=== PATIENT | male | born 1950 | race Caucasian/White ===

== ENCOUNTER 2021-02-26 14:56 | Inpatient (IN) | payer MEDICARE ==
[~2021-02-26] VITALS: Ht 182.9 cm; Wt 99.8 kg
[2021-02-26] MEDS ORDERED: acetaminophen 325mg tablet PO PRN ×2 (17:25)
[2021-02-26] MEDS ORDERED: dextrose 50%-water 50ml dispensing syringe IV PRN ×2 (17:25)
[2021-02-26] MEDS ORDERED: MESSAGE TO PHARMACY PO ONE (17:25)
[2021-02-26] MEDS ORDERED: morphine 2 MG/ML inj. syringe IV PRN ×2 (17:25)
[2021-02-26] MEDS ORDERED: magnesium hydroxide 30ml (MOM) UD suspension PO PRN (17:25)
[2021-02-26] MEDS ORDERED: normal saline 1000ml 1,000 ML IV SCH (17:25)
[2021-02-26] MEDS ORDERED: mag hydrox/Alum hydrox/simeth 30ml oral suspension PO PRN (17:25)
[2021-02-26] MEDS ORDERED: HYDROcodone/acetaminophen 5mg/325mg tablet PO PRN (17:25)
[2021-02-26] MEDS ORDERED: dextrose ORAL solution 15 GM/59 ML bottle PO PRN ×2 (17:25)
[2021-02-26] MEDS ORDERED: glucagon, human recombinant 1mg kit SUBCUT PRN (17:25)
[2021-02-26] MEDS ORDERED: ATOR20TA66 PO (17:45)
[2021-02-26] MEDS ORDERED: EMPA25TA PO (17:45)
[2021-02-26] MEDS ORDERED: GLIP10TA11 PO (17:45)
[2021-02-26] MEDS ORDERED: OMEP-50 PO (17:45)
[2021-02-26] MEDS ORDERED: METF-950 PO (17:45)
[2021-02-26] MEDS ORDERED: LISI1TAB51 PO (17:45)
[2021-02-26 18:20] VITALS: BP 127/62
[2021-02-26 18:39] LABS: BASOPHILS # (AUTO) 0.1 X10'3 (0-0.2); BASOPHILS % (AUTO) 0.7 % (0-1); EOSINOPHILS # (AUTO) 0.3 X10'3 (0-0.9); EOSINOPHILS % (AUTO) 2.9 % (0-6); HEMATOCRIT 36.9 % (42.0-52.0); HEMOGLOBIN 11.8 g/dl (14.0-17.9); LYMPHOCYTES # (AUTO) 2.1 X10'3 (1.1-4.8); LYMPHOCYTES % (AUTO) 19.5 % (21-51); MEAN CORPUSCULAR HEMOGLOBIN 31.1 PG (27.0-31.0); MEAN CORPUSCULAR HGB CONC 31.9 g/dL (33.0-36.5); MEAN CORPUSCULAR VOLUME 97.5 FL (78-98); MEAN PLATELET VOLUME 8.6 FL (7.4-10.4); MONOCYTES # (AUTO) 1.2 X10'3 (0-0.9); NEUTROPHILS % (AUTO) 65.9 % (42-75); PLATELET COUNT 344 X10'3 (140-440); RED BLOOD COUNT 3.79 X10'6 (4.70-6.10); RED CELL DISTRIBUTION WIDTH 13.6 % (11.5-14.5); WHITE BLOOD COUNT 10.6 X10'3 (4.5-11.0)
--- NOTE | 2021-02-26 18:44 | NUR ---
Problems reprioritized. Patient report given, questions answered & plan of care reviewed with NICOLE CARTER.
[2021-02-26 18:59] LABS: ALANINE AMINOTRANSFERASE 18 U/L (12-78); ALBUMIN 3.2 G/DL (3.4-5.0); ALBUMIN/GLOBULIN RATIO 0.7 (1.1-1.5); ALKALINE PHOSPHATASE 90 IU/L (46-116); ANION GAP 18 (8-16); ASPARTATE AMINO TRANSFERASE 10 U/L (10-37); BILIRUBIN,TOTAL 0.3 MG/DL (0.1-1.0); BLOOD UREA NITROGEN 79 MG/DL (7-18); BUN/CREATININE RATIO 13.6 (5.4-32.0); CALCIUM 8.7 MG/DL (8.5-10.1); CHLORIDE 111 MMOL/L (99-107); CREATININE 5.82 MG/DL (0.60-1.10); GLUCOSE 140 MG/DL (70-104); PHOSPHORUS 5.8 MG/DL (2.3-4.5); POTASSIUM 5.4 MMOL/L (3.5-5.1); SODIUM 140 MMOL/L (135-145); TOTAL PROTEIN 7.5 G/DL (6.4-8.2); eGFR 10 ML/MIN
[2021-02-26 19:18] LABS: TOTAL CARBON DIOXIDE 10.9 MMOL/L (24-32)
--- NOTE | 2021-02-26 19:26 | NUR ---
PAGER ID: [phone] MESSAGE: MiryamRosales 70 year old male [id number] DX: Acute renal failure Hx: DM, HTN Critical lab : CO2 of 10.9 Carmela [id number]
[2021-02-26 20:08] LABS: BASOPHILS % (AUTO) 0.4 % (0-1); EOSINOPHILS # (AUTO) 0.3 X10'3 (0-0.9); EOSINOPHILS % (AUTO) 2.6 % (0-6); HEMATOCRIT 38.3 % (42.0-52.0); HEMOGLOBIN 12.1 g/dl (14.0-17.9); LYMPHOCYTES # (AUTO) 2.1 X10'3 (1.1-4.8); LYMPHOCYTES % (AUTO) 19.4 % (21-51); MEAN CORPUSCULAR HEMOGLOBIN 30.8 PG (27.0-31.0); MEAN CORPUSCULAR HGB CONC 31.6 g/dL (33.0-36.5); MEAN CORPUSCULAR VOLUME 97.4 FL (78-98); MEAN PLATELET VOLUME 8.5 FL (7.4-10.4); MONOCYTES # (AUTO) 1.3 X10'3 (0-0.9); MONOCYTES % (AUTO) 11.4 % (2-12); NEUTROPHILS # (AUTO) 7.3 X10'3 (1.8-7.7); NEUTROPHILS % (AUTO) 66.2 % (42-75); PLATELET COUNT 375 X10'3 (140-440); RED BLOOD COUNT 3.94 X10'6 (4.70-6.10); WHITE BLOOD COUNT 11.1 X10'3 (4.5-11.0)
[2021-02-26 20:16] LABS: ALANINE AMINOTRANSFERASE 21 U/L (12-78); ALBUMIN 3.3 G/DL (3.4-5.0); ALBUMIN/GLOBULIN RATIO 0.7 (1.1-1.5); ALKALINE PHOSPHATASE 94 IU/L (46-116); ANION GAP 19 (8-16); ASPARTATE AMINO TRANSFERASE 10 U/L (10-37); BILIRUBIN,TOTAL 0.3 MG/DL (0.1-1.0); BLOOD UREA NITROGEN 74 MG/DL (7-18); BUN/CREATININE RATIO 13.3 (5.4-32.0); CALCIUM 8.7 MG/DL (8.5-10.1); CHLORIDE 110 MMOL/L (99-107); CREATININE 5.58 MG/DL (0.60-1.10); GLUCOSE 137 MG/DL (70-104); POTASSIUM 5.1 MMOL/L (3.5-5.1); SODIUM 140 MMOL/L (135-145); TOTAL PROTEIN 7.9 G/DL (6.4-8.2); eGFR 10 ML/MIN
[2021-02-26] MEDS: normal saline 1000ml 1,000 ML IV SCH (20:20)
[2021-02-26 20:21] LABS: TOTAL CARBON DIOXIDE 11.4 MMOL/L (24-32)
--- NOTE | 2021-02-26 20:38 | NUR ---
PAGER ID: [phone] MESSAGE: Rosales Witt 70 year old Rm : [id number] Dx: Acute Renal Failure Hx: Diabetes, HTN Critical value of CO2 @ 11.4 (2nd draw at 19:50) Carmela [id number]
[2021-02-26] MEDS: insulin glargine (Lantus) pen - multi-dose SQ SCH (21:00)
[2021-02-26] MEDS: heparin, porcine 5000 units/ml vial SQ SCH (21:20)
[2021-02-26] MEDS: docusate sod 100mg capsule PO SCH (21:31)
[2021-02-26 22:00] VITALS: BP 139/66
--- NOTE | 2021-02-26 22:42 | NUR ---
Received notification from the lab at 19:15 with a critical value of C02 at 10.9. I talked to Dr. Stevenson and got orders via the telephone to redraw CMP & CBC & increase normal saline to 120 ml/hr. At 2017, lab notified me again that CO2 is at 11.4. I paged Dr. Stevenson and endorsed this information to Keila CARTER.
[2021-02-27 01:10] LABS: ANION GAP 18 (8-16); BLOOD UREA NITROGEN 77 MG/DL (7-18); BUN/CREATININE RATIO 14.5 (5.4-32.0); CALCIUM 8.3 MG/DL (8.5-10.1); CHLORIDE 112 MMOL/L (99-107); CREATININE 5.31 MG/DL (0.60-1.10); GLUCOSE 160 MG/DL (70-104); SODIUM 141 MMOL/L (135-145); eGFR 11 ML/MIN
[2021-02-27 01:13] LABS: TOTAL CARBON DIOXIDE 11.4 MMOL/L (24-32)
[2021-02-27] MEDS ORDERED: sodium bicarbonate (8.4%) inj. 50 MEQ in dextrose 5%-water 1,000 ML IV SCH (01:15)
--- NOTE | 2021-02-27 01:31 | NUR ---
Dr Stevenson ordered a repeat BMP to monitor CO2, with instructions to administer 1amp of bicarb if the value was less than 18. The lab called with a bicarb of 11.4. 50mL NS with 1 amp bicarb @ 100mL/hr IV was ordered.
[2021-02-27 02:00] VITALS: BP 102/55
[2021-02-27] MEDS: normal saline 1000ml 1,000 ML IV SCH (04:40)
--- NOTE | 2021-02-27 05:27 | NUR ---
[place] Medication Administration: For this medication-pass time frame, all medication were reviewed, dispensed, administered and documented per hospital policy by EMMA Casey. [place] documentation: I have reviewed and agree with all interventions, assessments performed and documented by EMMA Casey.
[2021-02-27 06:00] VITALS: BP 126/80
--- NOTE | 2021-02-27 06:07 | NUR ---
Problems reprioritized. Patient report given, questions answered & plan of care reviewed with Jignesh CARTER.
[2021-02-27 06:16] LABS: BASOPHILS # (AUTO) 0.1 X10'3 (0-0.2); BASOPHILS % (AUTO) 0.7 % (0-1); EOSINOPHILS # (AUTO) 0.3 X10'3 (0-0.9); EOSINOPHILS % (AUTO) 3.8 % (0-6); HEMOGLOBIN 10.7 g/dl (14.0-17.9); LYMPHOCYTES % (AUTO) 24.1 % (21-51); MEAN CORPUSCULAR HEMOGLOBIN 30.6 PG (27.0-31.0); MEAN CORPUSCULAR HGB CONC 31.6 g/dL (33.0-36.5); MEAN CORPUSCULAR VOLUME 96.9 FL (78-98); MEAN PLATELET VOLUME 8.7 FL (7.4-10.4); MONOCYTES # (AUTO) 1.1 X10'3 (0-0.9); NEUTROPHILS # (AUTO) 4.8 X10'3 (1.8-7.7); NEUTROPHILS % (AUTO) 58.4 % (42-75); PLATELET COUNT 331 X10'3 (140-440); RED BLOOD COUNT 3.51 X10'6 (4.70-6.10); RED CELL DISTRIBUTION WIDTH 13.8 % (11.5-14.5); WHITE BLOOD COUNT 8.2 X10'3 (4.5-11.0)
[2021-02-27 06:22] LABS: ALBUMIN 2.7 G/DL (3.4-5.0); ANION GAP 17 (8-16); BLOOD UREA NITROGEN 75 MG/DL (7-18); BUN/CREATININE RATIO 14.3 (5.4-32.0); CALCIUM 8.2 MG/DL (8.5-10.1); CHLORIDE 110 MMOL/L (99-107); CREATININE 5.23 MG/DL (0.60-1.10); GLUCOSE 188 MG/DL (70-104); POTASSIUM 4.8 MMOL/L (3.5-5.1); SODIUM 138 MMOL/L (135-145); eGFR 11 ML/MIN
[2021-02-27 06:24] LABS: TOTAL CARBON DIOXIDE 10.6 MMOL/L (24-32)
--- NOTE | 2021-02-27 06:33 | NUR ---
DR. BRYAN PAGED: Rosales Harden [id number]: CRITICAL CO2 OF 10.6. DOWN FROM 11.4 AT 0049 . [id number]
[2021-02-27 07:03] LABS: ALANINE AMINOTRANSFERASE 15 U/L (12-78); ALBUMIN 2.7 G/DL (3.4-5.0); ALBUMIN/GLOBULIN RATIO 0.7 (1.1-1.5); ALKALINE PHOSPHATASE 87 IU/L (46-116); ASPARTATE AMINO TRANSFERASE 10 U/L (10-37); BILIRUBIN,TOTAL 0.2 MG/DL (0.1-1.0); BLOOD UREA NITROGEN 75 MG/DL (7-18); BUN/CREATININE RATIO 14.3 (5.4-32.0); CALCIUM 8.2 MG/DL (8.5-10.1); CHLORIDE 111 MMOL/L (99-107); CREATININE 5.25 MG/DL (0.60-1.10); GLUCOSE 187 MG/DL (70-104); POTASSIUM 4.8 MMOL/L (3.5-5.1); SODIUM 140 MMOL/L (135-145); TOTAL PROTEIN 6.6 G/DL (6.4-8.2); eGFR 11 ML/MIN
[2021-02-27 07:11] LABS: ANION GAP 19 (8-16); TOTAL CARBON DIOXIDE 10.1 MMOL/L (24-32)
[2021-02-27] MEDS: docusate sod 100mg capsule PO SCH ×2 (07:42→21:10)
[2021-02-27] MEDS: heparin, porcine 5000 units/ml vial SQ SCH ×2 (07:42→21:10)
[2021-02-27 11:00] VITALS: BP 158/71
--- NOTE | 2021-02-27 11:10 | NUR ---
PT'S PCP PHONED. MSG LEFT FOR A RETURN CALL.
[2021-02-27] MEDS: sodium bicarbonate (8.4%) inj. 150 MEQ in dextrose 5%-water 1,000 ML IV SCH ×2 (13:08→21:16)
[2021-02-27] MEDS: insulin Lispro (HumaLOG) vial - multi-dose SQ SCH (13:14)
[2021-02-27 14:27] LABS: TOTAL PROTEIN,URINE RANDOM 30.2 MG/DL
[2021-02-27 14:39] LABS: CLARITY,URINE CLEAR (Clear); COLOR,URINE STRAW (Yellow); PROTEIN,URINE NEGATIVE (Neg); UA COLLECTION TYPE CLN CATCH MIDSTREAM
[2021-02-27 14:40] LABS: GLUCOSE, URINE >=1000 mg/dl (Neg); KETONES,URINE NEGATIVE (Neg); LEUKOCYTE ESTERASE ,URINE NEGATIVE (Neg); NITRITES, URINE NEGATIVE (Neg); OCCULT BLOOD,URINE MODERATE (Neg); UROBILINOGEN,URINE 0.2 E.U/dL (0.2-1.0)
[2021-02-27 14:51] LABS: BACTERIA,URINE FEW /HPF (Neg); RBC,URINE 0-2 /HPF (0-2); SQUAMOUS EPITHELIAL CELL,UR FEW /LPF (FEW); WBC,URINE 0-4 /HPF (0-4)
--- NOTE | 2021-02-27 14:53 | NUR ---
Malnutrition/DM Consults: Pt hx DM A1C 8.0 per RN. Pt PO 100% first carb controlled/renal meal this admit, no edema, mild weakness, and no scaled wt this admit or prior wt hx. Current ht 144in error making BMI 7; RD d/w RN regarding updated anthropometrics this admit. Pt lacks minimum malnutrition criteria at this time. Written DM ed w/ RD contact information placed in pt chart. Addendum: 02/27/21 at [address] Amended: Links added.
[2021-02-27 15:00] VITALS: BP 158/68
[2021-02-27 18:00] VITALS: BP 130/70
--- NOTE | 2021-02-27 18:28 | NUR ---
Problems reprioritized. Patient report given, questions answered & plan of care reviewed with NICOLE CARTER.
[2021-02-27] MEDS: insulin glargine (Lantus) pen - multi-dose SQ SCH (21:12)
[2021-02-27 22:00] VITALS: BP 125/73
[2021-02-28 02:00] VITALS: BP 131/62
[2021-02-28] MEDS: sodium bicarbonate (8.4%) inj. 150 MEQ in dextrose 5%-water 1,000 ML IV SCH ×4 (03:20→21:25)
[2021-02-28 06:00] VITALS: BP 123/57
--- NOTE | 2021-02-28 06:20 | NUR ---
Problems reprioritized. Patient report given, questions answered & plan of care reviewed with Sebastian CARTER.
--- NOTE | 2021-02-28 06:21 | NUR ---
Problems reprioritized. Patient report given, questions answered & plan of care reviewed with Jignesh CARTER.
[2021-02-28] MEDS: docusate sod 100mg capsule PO SCH ×2 (08:00→20:07)
[2021-02-28] MEDS: ondansetron/PF 4mg/2ml inj IV PRN ×2 (08:08→16:48)
[2021-02-28] MEDS: heparin, porcine 5000 units/ml vial SQ SCH ×2 (08:08→20:07)
[2021-02-28 08:21] LABS: BASOPHILS % (AUTO) 0.7 % (0-1); EOSINOPHILS # (AUTO) 0.2 X10'3 (0-0.9); EOSINOPHILS % (AUTO) 2.7 % (0-6); HEMATOCRIT 30.4 % (42.0-52.0); LYMPHOCYTES # (AUTO) 1.7 X10'3 (1.1-4.8); LYMPHOCYTES % (AUTO) 24.1 % (21-51); MEAN CORPUSCULAR HEMOGLOBIN 31.1 PG (27.0-31.0); MEAN CORPUSCULAR HGB CONC 32.9 g/dL (33.0-36.5); MEAN CORPUSCULAR VOLUME 94.5 FL (78-98); MEAN PLATELET VOLUME 8.5 FL (7.4-10.4); MONOCYTES # (AUTO) 0.8 X10'3 (0-0.9); MONOCYTES % (AUTO) 11.8 % (2-12); NEUTROPHILS # (AUTO) 4.2 X10'3 (1.8-7.7); NEUTROPHILS % (AUTO) 60.7 % (42-75); PLATELET COUNT 293 X10'3 (140-440); RED BLOOD COUNT 3.22 X10'6 (4.70-6.10); RED CELL DISTRIBUTION WIDTH 13.2 % (11.5-14.5); WHITE BLOOD COUNT 6.9 X10'3 (4.5-11.0)
[2021-02-28 08:26] LABS: ALBUMIN 2.6 G/DL (3.4-5.0); ANION GAP 13 (8-16); BLOOD UREA NITROGEN 56 MG/DL (7-18); BUN/CREATININE RATIO 15.1 (5.4-32.0); CHLORIDE 107 MMOL/L (99-107); CREATININE 3.72 MG/DL (0.60-1.10); GLUCOSE 260 MG/DL (70-104); POTASSIUM 3.5 MMOL/L (3.5-5.1); SODIUM 142 MMOL/L (135-145); TOTAL CARBON DIOXIDE 21.9 MMOL/L (24-32); eGFR 16 ML/MIN
[2021-02-28] MEDS: insulin Lispro (HumaLOG) vial - multi-dose SQ SCH ×2 (09:28→12:58)
--- NOTE | 2021-02-28 10:37 | NUR ---
DR. GARCIA PAGED: Rosales Harden [id number]: ONLY LAB FROM PCP IN SEPTEMBER WAS FOR A1C. [id number]
[2021-02-28 11:00] VITALS: BP 106/54
[2021-02-28 15:00] VITALS: BP 121/43
[2021-02-28 18:00] VITALS: BP 128/43
--- NOTE | 2021-02-28 18:10 | NUR ---
Problems reprioritized. Patient report given, questions answered & plan of care reviewed with NICOLE CARTER.
[2021-02-28] MEDS: insulin glargine (Lantus) pen - multi-dose SQ SCH (21:22)
[2021-02-28 22:00] VITALS: BP 124/70
[2021-03-01] MEDS: ondansetron/PF 4mg/2ml inj IV PRN ×2 (01:46→08:05)
[2021-03-01 02:00] VITALS: BP 128/64
[2021-03-01 06:00] VITALS: BP 126/72
--- NOTE | 2021-03-01 06:41 | NUR ---
Problems reprioritized. Patient report given, questions answered & plan of care reviewed with Clarisse CARTER & Carmela CARTER.
--- NOTE | 2021-03-01 06:44 | NUR ---
Patient in room PCU 3014. I have received report from EMMA Bowman/EMMA Casey and had the opportunity to ask questions and assume patient care.
[2021-03-01] MEDS: docusate sod 100mg capsule PO SCH (08:00)
[2021-03-01] MEDS: heparin, porcine 5000 units/ml vial SQ SCH (08:05)
[2021-03-01 08:16] LABS: ANION GAP 9 (8-16); BASOPHILS % (AUTO) 0.4 % (0-1); BLOOD UREA NITROGEN 39 MG/DL (7-18); CHLORIDE 105 MMOL/L (99-107); EOSINOPHILS # (AUTO) 0.2 X10'3 (0-0.9); EOSINOPHILS % (AUTO) 2.1 % (0-6); GLUCOSE 211 MG/DL (70-104); HEMATOCRIT 29.5 % (42.0-52.0); HEMOGLOBIN 9.7 g/dl (14.0-17.9); LYMPHOCYTES # (AUTO) 1.9 X10'3 (1.1-4.8); LYMPHOCYTES % (AUTO) 21.8 % (21-51); MEAN CORPUSCULAR HEMOGLOBIN 30.9 PG (27.0-31.0); MEAN CORPUSCULAR HGB CONC 32.9 g/dL (33.0-36.5); MEAN PLATELET VOLUME 8.5 FL (7.4-10.4); MONOCYTES # (AUTO) 1.1 X10'3 (0-0.9); MONOCYTES % (AUTO) 12.1 % (2-12); NEUTROPHILS # (AUTO) 5.6 X10'3 (1.8-7.7); NEUTROPHILS % (AUTO) 63.6 % (42-75); PLATELET COUNT 313 X10'3 (140-440); RED BLOOD COUNT 3.14 X10'6 (4.70-6.10); RED CELL DISTRIBUTION WIDTH 12.9 % (11.5-14.5); SODIUM 146 MMOL/L (135-145); TOTAL CARBON DIOXIDE 32.3 MMOL/L (24-32); WHITE BLOOD COUNT 8.7 X10'3 (4.5-11.0)
[2021-03-01 08:17] LABS: ALBUMIN 2.5 G/DL (3.4-5.0); BUN/CREATININE RATIO 13.9 (5.4-32.0); CALCIUM 7.8 MG/DL (8.5-10.1); eGFR 22 ML/MIN
[2021-03-01 08:20] LABS: POTASSIUM 2.9 MMOL/L (3.5-5.1)
[2021-03-01] MEDS ORDERED: potassium Cl 20 mEq SR tablet PO STA (08:25)
--- NOTE | 2021-03-01 08:26 | NUR ---
Critical K: 2.9. Dr. Walton on the floor and gave new order for Kdur [id number] x1
[2021-03-01] MEDS ORDERED: ONDA4TAB6 PO (09:34)
--- NOTE | 2021-03-01 11:00 | NUR ---
[place] documentation: I have reviewed and agree with all interventions, assessments performed and documented by EMMA Casey.
--- NOTE | 2021-03-01 11:00 | NUR ---
[place] Medication Administration: For this medication-pass time frame, all medication were reviewed, dispensed, administered and documented per hospital policy by EMMA Casey.
--- NOTE | 2021-03-01 11:04 | NUR ---
Pt is stable for discharge per MD orders. All discharge instructions reviewed with patient and all questions answered. New prescription sent to preferred pharmacy. PIV discontinued and cannula intact. Tell monitor was discontinued. Belongings collected and sent with patient. The patient was wheeled to private vehicle with @ [id number].
[2021-03-01 15:51] LABS: A/G RATIO 0.9 (0.7-1.7); ALBUMIN 2.7 g/dL (2.9-4.4); BETA GLOBULIN 0.8 g/dL (0.7-1.3); GAMMA GLOBULIN 1.1 g/dL (0.4-1.8); GLOBULIN, TOTAL 2.9 g/dL (2.2-3.9); M-SPIKE Not Observed g/dL (Not Observed); PROTEIN, TOTAL, SERUM 5.6 g/dL (6.0-8.5)
[2021-03-02 16:47] LABS: ALPHA-1-GLOBULIN,UR 13.6 % (.); ALPHA-2-GLOBULIN,UR 24.1 % (.); BETA GLOBULIN, UR 32.4 % (.); GAMMA GLOBULIN,UR 18.8 % (.); PROTEIN,TOTAL,URINE 9.2 mg/dL (Not Estab.)
== END 2021-03-01 10:55 | disposition home or self-care (01) | DRG 683 ==
LOC: UNDOADMIN 17:04 → PCU 3S 17:04
PROVIDERS: ADMIT Internal Medicine; ATTEND Family Medicine
DX: N17.9 Acute kidney failure, unspecified (principal); E87.2 Acidosis; E86.0 Dehydration; D63.8 Anemia in other chronic diseases classified elsewhere; N18.30 Chronic kidney disease, stage 3 unspecified; E87.6 Hypokalemia; K21.9 Gastro-esophageal reflux disease without esophagitis; E78.5 Hyperlipidemia, unspecified; Z66 Do not resuscitate; Z79.84 Long term (current) use of oral hypoglycemic drugs; Z79.899 Other long term (current) drug therapy; Z83.3 Family history of diabetes mellitus
CPT/HCPCS: 36415; 76770; 80048; 80053; 81001; 82570; 82948; 83036; 83605; 83880; 84100; 84155; 84156; 84165; 84166; 84300; 84550; 85025; 85651; 87081; 93306; G0378; J1644; J1815; J2405